=== PATIENT | male | born 1960 | race Caucasian/White ===

== ENCOUNTER → 2017-10-17 | Outpatient (CLI) | payer MEDICARE ==
[~2017-10-17] MED LIST: ALEVE220 MG PO; ASPI-COR81 MG PO; AUGMENTIN 875 M1 TAB PO; CHOLESTER PO; CLARITIN10 MG PO; GABAPENTIN; LYRICA100 MG PO; LYRICA25 MG PO; NKHM; TRAMADOL HCL50 MG PO; ULTRAM50 MG PO; VICODIN 500 MG-1 TAB PO; [UNRECOGNIZED DRUG - OTHER] PO
[2017-10-17 12:10] LABS: FREE T4 0.8 ng/dl (0.76-1.46)
[2017-10-18 06:13] LABS: TOTAL PROTEIN, SERUM 7.7 g/dL (6.0-8.5)
[2017-10-18 08:10] LABS: IMMUNOGLOBULIN G, QNT 1489 mg/dL (700-1600); IMMUNOGLOBULIN M, QNT 98 mg/dL (20-172); RHEUMATOID ARTHRITIS FACTOR <10.0 IU/mL (0.0-13.9)
[2017-10-18 10:03] LABS: SJOGREN ANTI-SS-A <0.2 AI (0.0-0.9); SJOREN AB, ANTI-SS-B <0.2 AI (0.0-0.9)
[2017-10-18 15:06] LABS: A/G RATIO 0.9 (0.7-1.7); ALBUMIN 3.6 g/dL (2.9-4.4); ALPHA-1-GLOBULIN 0.3 g/dL (0.0-0.4); ALPHA-2-GLOBULIN 0.9 g/dL (0.4-1.0); BETA GLOBULIN 1.2 g/dL (0.7-1.3); GAMMA GLOBULIN 1.7 g/dL (0.4-1.8); GLOBULIN, TOTAL 4.1 g/dL (2.2-3.9); M-SPIKE Not Observed g/dL (Not Observed)
== END | disposition home or self-care (01) ==
LOC: LAB 10:31
PROVIDERS: Psychiatry & Neurology Neurology
DX: Z11.3 Encounter for screening for infections with a predominantly sexual mode of transmission (principal); R26.81 Unsteadiness on feet; R20.9 Unspecified disturbances of skin sensation; R20.2 Paresthesia of skin; R20.0 Anesthesia of skin; Z79.899 Other long term (current) drug therapy

== ENCOUNTER 2018-08-06 07:35 | Emergency (ER) | payer MEDICARE ==
[~2018-08-06] VITALS: Ht 177.8 cm; Wt 98.9 kg
--- NOTE | ~2018-08-06 | EKG ---
[place], [place] ELECTROCARDIOGRAM REPORT NAME: DERIC CHILDRESS UNIT #: [id number] ROOM: DOCTOR: ROMAIN DRAFT REPORT BIRTHDATE: [birth year] [facility] Test Date: 2018-08-06 Test Time: 08:33:02 Pat Name: DERIC CHILDRESS Department: Room: Gender: Lead Case Manager: Sayra Arce : 1960 Requested By: RYLIE RICH Order Number: [id number] Reading MD: Herve Frank MD Measurements Intervals [place] Rate: 79 P: 50 HI: 176 QRS: -12 QRSD: 94 T: 43 QT: 374 QTc: 429 Interpretive Statements Sinus rhythm Consider right ventricular hypertrophy Electronically Signed On 08-07-2018 8:12:00 PST by Herve Frank MD CM:EKGRPT:ELECTROCARDIOGRAM REPORT [id number] RYLIE LOVETT DRAFT REPORT RYLIE RICH DO
[2018-08-06 08:39] LABS: BASO % 0.3 % (0.0-1.0); EOS # 0.2 10*3/uL (0.0-0.4); EOS % 1.9 % (1.0-4.0); HEMATOCRIT 46.5 % (42.0-52.0); HEMOGLOBIN 16.3 g/dl (14.0-18.0); LYMPH # 3.8 10*3/uL (1.3-4.4); MEAN CELL VOLUME 91.2 fl (80.0-94.0); MEAN CORPUSCULAR HGB CONC 35.1 g/dl (33.0-37.0); MEAN PLATELET VOLUME 11.3 fl (9.6-12.3); MONO # 0.7 10*3/uL (0.1-1.0); MONO % 5.8 % (3.0-9.0); NEUT % 59.7 % (47.0-73.0); PLATELET COUNT AUTOMATED 234 10*3/uL (130-400); RED CELL DISTRI WIDTH 13.6 % (0-14.5); WHITE BLOOD COUNT 11.8 10*3/uL (4.8-10.8)
[2018-08-06 08:45] LABS: ACT PARTIAL THROMBO TIME 24.6 SECONDS (20.8-31.5); INTERNATIONAL NORM RATIO 0.9 (2.0-3.5)
[2018-08-06 08:51] LABS: ALBUMIN 3.4 gm/dl (3.1-4.5); ALKALINE PHOSPHATASE 79 U/L (45-117); BUN 15 mg/dl (7-24); CHLORIDE 111 mmol/L (98-107); CREATININE 1.18 mg/dL (0.70-1.30); LIPASE 284 U/L (73-393); POTASSIUM 3.7 mmol/L (3.5-5.1); SGOT/AST 12 IU/L (3-35); SGPT/ALT 25 U/L (12-78); SODIUM 139 mmol/L (136-145); TOTAL PROTEIN 7.8 gm/dL (6.4-8.2)
[2018-08-06 09:00] LABS: TROPONIN I < 0.015 ng/ml (<0.045)
[2018-08-06] MEDS ORDERED: DOXYCYCLINE100 M3 PO (10:14)
[2018-08-06] MEDS ORDERED: MUCINEX1200 M1 PO (10:14)
== END 2018-08-06 10:44 | disposition home or self-care (01) ==
LOC: ED 07:35
PROVIDERS: Emergency Medicine
DX: J01.90 Acute sinusitis, unspecified (principal); R42 Dizziness and giddiness; R05 Cough; R79.1 Abnormal coagulation profile; Z79.899 Other long term (current) drug therapy; Z79.82 Long term (current) use of aspirin; Z88.1 Allergy status to other antibiotic agents; Z88.6 Allergy status to analgesic agent

== ENCOUNTER → 2018-11-03 | Day surgery (SDC) | payer MEDICARE ==
[~2018-11-03] VITALS: Ht 177.8 cm; Wt 104.3 kg
[~2018-11-03] MED LIST changes: +ASPIR-TRIN325 MG PO; +ATORVASTATIN CA80 M1 PO; +DOXYCYCLINE100 M3 PO; +LYRICA150 M1 PO; +MUCINEX1200 M1 PO
--- NOTE | ~2018-11-03 | O ---
[place], [place] OPERATIVE NOTE NAME: DERIC CHILDRESS UNIT #: [id number] ROOM: DOCTOR: JAYJAY DIXON MD BIRTHDATE: [birth year] DOS: 11/03/2018 HISTORY OF PRESENT ILLNESS: A 58-year-old patient who presented with chief complaint of history of colonic polyp in the remote past 20 years ago. ALLERGIES: DICLOFENAC AND AMOXICILLIN. FAMILY HISTORY: Colon cancer. PAST SURGICAL HISTORY: Minor operation and carpal tunnel in the left knee scope, cardiac stents. HISTORY: Hyperlipidemia, coronary artery disease. SOCIAL HISTORY: Smoker, nonalcohol consumer. PROCEDURE: Today's procedure part of investigation is colonoscopy. PREMEDICATION: Propofol. SCOPE: Olympus forwarding colonoscope 10L video. REPORT: After putting the patient in left lateral position and application of lubricant to the scope, the scope was introduced. Thereafter, under direct visualization, I advanced through the length of colon without difficulty. Base of the cecum explored. Upon service identified, ileocecal valve defined. Scope was gradually withdrawn from ascending, transverse, descending colon. The patient extubated, tolerated the procedure well. IMPRESSION: Normal colonoscopic examination. PLAN: High fiber fruit diet. ACTIVITY: Ad stanton. FOLLOWUP: Routinely with you in office, p.r.n. visit with us in GI Clinic. Follow-up colonoscopy in 10 years unless there are symptoms in which case follow-up should be as needed. Thank you very much indeed for your kind referral. [place], [place] OPERATIVE NOTE NAME: DERIC CHILDRESS UNIT #: [id number] ROOM: DOCTOR: JAYJAY DIXON MD BIRTHDATE: [birth year] JAYJAY DIXON MD CM:OPRECORD:OPERATIVE NOTE [id number] JAYJAY DIXON MD 11/21/18 1509 interface
[2018-11-03 10:37] VITALS: BP 142/96
[2018-11-03 12:08] VITALS: BP 95/68
[2018-11-03 12:10] VITALS: BP 97/63
[2018-11-03 12:25] VITALS: BP 126/81
== END | disposition home or self-care (01) ==
LOC: SDC 11-02 08:00
DX: R14.0 Abdominal distension (gaseous) (principal); R10.9 Unspecified abdominal pain; E78.5 Hyperlipidemia, unspecified; M19.90 Unspecified osteoarthritis, unspecified site; I25.2 Old myocardial infarction; F17.210 Nicotine dependence, cigarettes, uncomplicated; I25.10 Atherosclerotic heart disease of native coronary artery without angina pectoris; Z88.1 Allergy status to other antibiotic agents; Z88.0 Allergy status to penicillin; Z88.8 Allergy status to other drugs, medicaments and biological substances; Z87.442 Personal history of urinary calculi; Z98.890 Other specified postprocedural states; Z95.818 Presence of other cardiac implants and grafts; Z79.82 Long term (current) use of aspirin; Z79.899 Other long term (current) drug therapy; Z86.73 Personal history of transient ischemic attack (TIA), and cerebral infarction without residual deficits; Z86.010 Personal history of colon polyps; Z82.49 Family history of ischemic heart disease and other diseases of the circulatory system; Z80.0 Family history of malignant neoplasm of digestive organs; Z80.3 Family history of malignant neoplasm of breast; Z80.1 Family history of malignant neoplasm of trachea, bronchus and lung

== ENCOUNTER 2020-02-09 07:13 | Emergency (ER) | payer OTHER ==
[~2020-02-09] VITALS: Ht 177.8 cm; Wt 98.9 kg
[2020-02-09] MEDS ORDERED: NORCO 10-325 T1 EACH PO (08:34)
== END 2020-02-09 09:00 | disposition home or self-care (01) ==
LOC: ED 07:13
DX: S86.912A Strain of unspecified muscle(s) and tendon(s) at lower leg level, left leg, initial encounter (principal); Z88.8 Allergy status to other drugs, medicaments and biological substances; Z79.899 Other long term (current) drug therapy; Z79.82 Long term (current) use of aspirin; X58.XXXA Exposure to other specified factors, initial encounter; Y93.89 Activity, other specified; Y92.89 Other specified places as the place of occurrence of the external cause; Y99.8 Other external cause status

== ENCOUNTER 2020-03-17 21:13 | Emergency (ER) | payer OTHER ==
[~2020-03-17] VITALS: Ht 177.8 cm; Wt 98.9 kg
[~2020-03-17 21:13] MED LIST changes: +NORCO 10-325 T1 EACH PO
== END 2020-03-17 23:06 | disposition home or self-care (01) ==
LOC: ED 21:13
DX: S90.31XA Contusion of right foot, initial encounter (principal); Z88.1 Allergy status to other antibiotic agents; Z88.6 Allergy status to analgesic agent; Z79.82 Long term (current) use of aspirin; Z79.899 Other long term (current) drug therapy; X58.XXXA Exposure to other specified factors, initial encounter; Y93.89 Activity, other specified; Y92.89 Other specified places as the place of occurrence of the external cause; Y99.8 Other external cause status

== ENCOUNTER 2020-04-19 23:20 | Emergency (ER) | payer OTHER ==
[~2020-04-19] VITALS: Ht 177.8 cm; Wt 104.3 kg
[2020-04-19 23:52] LABS: BASO # 0.1 10*3/uL (0.0-0.1); BASO % 0.5 % (0.0-1.0); EOS # 0.2 10*3/uL (0.0-0.4); EOS % 2.5 % (1.0-4.0); HEMATOCRIT 46.4 % (42.0-52.0); LYMPH # 2.5 10*3/uL (1.3-4.4); LYMPH % 26.2 % (27.0-41.0); MEAN CELL VOLUME 93.2 fl (80.0-94.0); MEAN CORPUSCULAR HGB 32.3 pg (27.0-31.0); MEAN CORPUSCULAR HGB CONC 34.7 g/dl (33.0-37.0); MEAN PLATELET VOLUME 11.4 fl (9.6-12.3); MONO # 0.6 10*3/uL (0.1-1.0); NEUT # 6.2 10*3/uL (2.3-7.9); NEUT % 64.5 % (47.0-73.0); PLATELET COUNT AUTOMATED 207 10*3/uL (130-400); RED BLOOD COUNT 4.98 10*6/uL (4.50-5.90); RED CELL DISTRI WIDTH 14.2 % (0-14.5); WHITE BLOOD COUNT 9.7 10*3/uL (4.8-10.8)
[2020-04-20 00:10] LABS: ALBUMIN 3.6 gm/dl (3.1-4.5); ALKALINE PHOSPHATASE 71 U/L (45-117); BUN 10 mg/dl (7-24); CHLORIDE 112 mmol/L (98-107); CREATININE 1.21 mg/dL (0.70-1.30); POTASSIUM 3.6 mmol/L (3.5-5.1); SGOT/AST 14 IU/L (3-35); SGPT/ALT 27 U/L (12-78); SODIUM 142 mmol/L (136-145); TOTAL PROTEIN 7.6 gm/dL (6.4-8.2); TROPONIN I < 0.015 ng/ml (<0.045)
[2020-04-20] MEDS ORDERED: MEDROL DOSEPAK4 MG PO (01:09)
== END 2020-04-20 01:30 | disposition home or self-care (01) ==
LOC: ED 23:20
PROVIDERS: Physician Assistant
DX: J68.0 Bronchitis and pneumonitis due to chemicals, gases, fumes and vapors (principal); F17.200 Nicotine dependence, unspecified, uncomplicated; Z79.899 Other long term (current) drug therapy; Z88.8 Allergy status to other drugs, medicaments and biological substances; Z79.2 Long term (current) use of antibiotics; Z79.82 Long term (current) use of aspirin

== ENCOUNTER 2021-05-20 17:32 | Emergency (ER) | payer OTHER ==
[~2021-05-20] VITALS: Wt 99.8 kg
[~2021-05-20 17:32] MED LIST changes: +MEDROL DOSEPAK4 MG PO
[2021-05-20] MEDS ORDERED: HYDROCODONE-AC1 EAC1 PO (20:21)
== END 2021-05-20 20:27 | disposition home or self-care (01) ==
LOC: ED 17:32
DX: S89.92XA Unspecified injury of left lower leg, initial encounter (principal); Z88.1 Allergy status to other antibiotic agents; Z88.8 Allergy status to other drugs, medicaments and biological substances; Z79.899 Other long term (current) drug therapy; Z79.82 Long term (current) use of aspirin; Z98.890 Other specified postprocedural states; W19.XXXA Unspecified fall, initial encounter; Y93.89 Activity, other specified; Y92.89 Other specified places as the place of occurrence of the external cause; Y99.8 Other external cause status

== ENCOUNTER → 2021-06-04 | Outpatient (CLI) | payer OTHER ==
[~2021-06-04] MED LIST changes: +HYDROCODONE-AC1 EAC1 PO
[2021-06-04 10:11] LABS: BASO # 0.1 10*3/uL (0.0-0.1); BASO % 0.7 % (0.0-1.0); EOS # 0.2 10*3/uL (0.0-0.4); EOS % 2.5 % (1.0-4.0); HEMATOCRIT 50.5 % (42.0-52.0); LYMPH % 33.3 % (27.0-41.0); MEAN CELL VOLUME 91.8 fl (80.0-94.0); MEAN CORPUSCULAR HGB 31.3 pg (27.0-31.0); MEAN CORPUSCULAR HGB CONC 34.1 g/dl (33.0-37.0); MEAN PLATELET VOLUME 11.2 fl (9.6-12.3); MONO # 0.4 10*3/uL (0.1-1.0); MONO % 4.2 % (3.0-9.0); NEUT # 5.4 10*3/uL (2.3-7.9); PLATELET COUNT AUTOMATED 254 10*3/uL (130-400); RED CELL DISTRI WIDTH 13.9 % (0-14.5); WHITE BLOOD COUNT 9.1 10*3/uL (4.8-10.8)
[2021-06-04 10:42] LABS: ALBUMIN 3.5 gm/dl (3.1-4.5); ALKALINE PHOSPHATASE 75 U/L (45-117); BUN 10 mg/dl (7-24); CHLORIDE 108 mmol/L (98-107); CHOLESTEROL 171 mg/dL (<200); CREATININE 1.16 mg/dL (0.70-1.30); FREE T4 1.11 ng/dl (0.76-1.46); LDL CHOLESTEROL 97 mg/dL (9-159); POTASSIUM 4.3 mmol/L (3.5-5.1); SGOT/AST 20 IU/L (3-35); SGPT/ALT 38 U/L (12-78); SODIUM 137 mmol/L (136-145); TOTAL PROTEIN 8.6 gm/dL (6.4-8.2); TRIGLYCERIDES 199 mg/dl (<150)
[2021-06-04 11:37] LABS: VITAMIN D, 25-HYDROXY 26.7 ng/mL (30-100)
== END | disposition home or self-care (01) ==
LOC: LAB 09:49
PROVIDERS: ATTEND Internal Medicine
DX: I25.10 Atherosclerotic heart disease of native coronary artery without angina pectoris (principal); E55.9 Vitamin D deficiency, unspecified; E78.2 Mixed hyperlipidemia

== ENCOUNTER → 2021-07-03 | Outpatient (CLI) | payer OTHER | END | disposition home or self-care (01) | LOC: ORTHO 04:27 | PROVIDERS: ATTEND Orthopaedic Surgery | DX: M11.262 Other chondrocalcinosis, left knee (principal); M76.891 Other specified enthesopathies of right lower limb, excluding foot ==

== ENCOUNTER 2022-02-21 14:54 | Inpatient (IN) | payer OTHER ==
[~2022-02-21] VITALS: Ht 177.8 cm; Wt 106.7 kg
[2022-02-21 15:21] VITALS: BP 111/76
[2022-02-21 16:24] LABS: BASO # 0.1 10*3/uL (0.0-0.1); BASO % 0.4 % (0.0-1.0); EOS # 0.1 10*3/uL (0.0-0.4); EOS % 0.6 % (1.0-4.0); HEMATOCRIT 48.6 % (42.0-52.0); LYMPH # 2.3 10*3/uL (1.3-4.4); LYMPH % 16.6 % (27.0-41.0); MEAN CELL VOLUME 91.5 fl (80.0-94.0); MEAN CORPUSCULAR HGB 31.1 pg (27.0-31.0); MEAN PLATELET VOLUME 11.8 fl (9.6-12.3); MONO # 0.6 10*3/uL (0.1-1.0); MONO % 4.5 % (3.0-9.0); NEUT # 10.8 10*3/uL (2.3-7.9); NEUT % 77.7 % (47.0-73.0); PLATELET COUNT AUTOMATED 196 10*3/uL (130-400); RED BLOOD COUNT 5.31 10*6/uL (4.50-5.90); RED CELL DISTRI WIDTH 14.3 % (0-14.5); WHITE BLOOD COUNT 13.9 10*3/uL (4.8-10.8)
[2022-02-21 16:36] LABS: ACT PARTIAL THROMBO TIME 28.6 SECONDS (20.0-32.1)
[2022-02-21 16:39] LABS: ALKALINE PHOSPHATASE 68 U/L (45-117); BUN 10 mg/dl (7-24); CHLORIDE 110 mmol/L (98-107); CREATININE 0.97 mg/dL (0.70-1.30); LIPASE 105 U/L (73-393); SGOT/AST 21 IU/L (3-35); SGPT/ALT 21 U/L (12-78); SODIUM 141 mmol/L (136-145); TOTAL PROTEIN 7.8 gm/dL (6.4-8.2)
[2022-02-21 21:00] VITALS: BP 126/75
[2022-02-21] MEDS ORDERED: OMEPRAZOLE MAGN20 MG PO (21:16)
[2022-02-21] MEDS ORDERED: CYMBALTA30 MG PO (21:17)
[2022-02-21] MEDS ORDERED: MELOXICAM15 MG PO (21:21)
[2022-02-21] MEDS ORDERED: VITAMIN D325 MCG PO (21:22)
[2022-02-21] MEDS ORDERED: PROTONIX40 MG PO (21:32)
[2022-02-22] VITALS (8 sets, daily range): BP systolic 100–119; BP diastolic 60–78
[2022-02-22 06:19] LABS: BASO % 0.2 % (0.0-1.0); EOS % 0.1 % (1.0-4.0); HEMATOCRIT 47.2 % (42.0-52.0); LYMPH # 2.2 10*3/uL (1.3-4.4); LYMPH % 13.6 % (27.0-41.0); MEAN CORPUSCULAR HGB 31.9 pg (27.0-31.0); MEAN CORPUSCULAR HGB CONC 33.9 g/dl (33.0-37.0); MEAN PLATELET VOLUME 12.5 fl (9.6-12.3); MONO # 0.9 10*3/uL (0.1-1.0); MONO % 5.6 % (3.0-9.0); NEUT # 12.9 10*3/uL (2.3-7.9); NEUT % 79.9 % (47.0-73.0); PLATELET COUNT AUTOMATED 182 10*3/uL (130-400); RED BLOOD COUNT 5.02 10*6/uL (4.50-5.90); RED CELL DISTRI WIDTH 14.5 % (0-14.5); WHITE BLOOD COUNT 16.2 10*3/uL (4.8-10.8)
[2022-02-22 06:48] LABS: ALKALINE PHOSPHATASE 66 U/L (45-117); BUN 10 mg/dl (7-24); CHLORIDE 112 mmol/L (98-107); CREATININE 0.93 mg/dL (0.70-1.30); POTASSIUM 3.8 mmol/L (3.5-5.1); SGOT/AST 18 IU/L (3-35); SGPT/ALT 18 U/L (12-78); SODIUM 139 mmol/L (136-145); TOTAL PROTEIN 7.4 gm/dL (6.4-8.2)
== END 2022-02-22 18:04 | disposition home or self-care (01) | DRG 343 ==
LOC: ED 14:54 → EDHOLD 17:49 → 5E 17:49
PROVIDERS: Emergency Medicine; ADMIT Internal Medicine; ATTEND Internal Medicine
PROC: 0DTJ4ZZ Resection of Appendix, Percutaneous Endoscopic Approach (ICD-10-PCS; principal; 2022-02-22)
PROC: 3E0T3BZ Introduction of Anesthetic Agent into Peripheral Nerves and Plexi, Percutaneous Approach (ICD-10-PCS; 2022-02-22)
PROC: 3E0T33Z Introduction of Anti-inflammatory into Peripheral Nerves and Plexi, Percutaneous Approach (ICD-10-PCS; 2022-02-22)
DX: K35.30 Acute appendicitis with localized peritonitis, without perforation or gangrene (principal); K21.9 Gastro-esophageal reflux disease without esophagitis; E78.5 Hyperlipidemia, unspecified; E55.9 Vitamin D deficiency, unspecified; G89.29 Other chronic pain; K80.20 Calculus of gallbladder without cholecystitis without obstruction; Z96.652 Presence of left artificial knee joint; Z88.1 Allergy status to other antibiotic agents; Z88.8 Allergy status to other drugs, medicaments and biological substances; Z82.49 Family history of ischemic heart disease and other diseases of the circulatory system; Z79.899 Other long term (current) drug therapy; Z79.82 Long term (current) use of aspirin; Z80.1 Family history of malignant neoplasm of trachea, bronchus and lung

== ENCOUNTER 2022-06-06 23:40 | Emergency (ER) | payer OTHER ==
[~2022-06-06] VITALS: Ht 177.8 cm; Wt 111.6 kg
[~2022-06-06 23:40] MED LIST changes: +CYMBALTA30 MG PO; +MELOXICAM15 MG PO; +OMEPRAZOLE MAGN20 MG PO; +PROTONIX40 MG PO; +VITAMIN D325 MCG PO
[2022-06-07 02:18] LABS: BASO # 0.1 10*3/uL (0.0-0.1); BASO % 0.6 % (0.0-1.0); EOS # 0.2 10*3/uL (0.0-0.4); EOS % 2.1 % (1.0-4.0); HEMATOCRIT 47.8 % (42.0-52.0); LYMPH # 3.2 10*3/uL (1.3-4.4); LYMPH % 36.6 % (27.0-41.0); MEAN CELL VOLUME 91.6 fl (80.0-94.0); MEAN CORPUSCULAR HGB 31.4 pg (27.0-31.0); MEAN CORPUSCULAR HGB CONC 34.3 g/dl (33.0-37.0); MEAN PLATELET VOLUME 10.8 fl (9.6-12.3); MONO # 0.6 10*3/uL (0.1-1.0); MONO % 6.7 % (3.0-9.0); NEUT # 4.7 10*3/uL (2.3-7.9); NEUT % 53.7 % (47.0-73.0); PLATELET COUNT AUTOMATED 205 10*3/uL (130-400); RED BLOOD COUNT 5.22 10*6/uL (4.50-5.90); RED CELL DISTRI WIDTH 13.8 % (0-14.5); WHITE BLOOD COUNT 8.7 10*3/uL (4.8-10.8)
[2022-06-07 02:33] LABS: ALKALINE PHOSPHATASE 58 U/L (45-117); BUN 18 mg/dl (7-24); CHLORIDE 113 mmol/L (98-107); CREATININE 1.34 mg/dL (0.70-1.30); POTASSIUM 4.2 mmol/L (3.5-5.1); SGOT/AST 14 IU/L (3-35); SGPT/ALT 29 U/L (12-78); SODIUM 143 mmol/L (136-145); TOTAL PROTEIN 7.7 gm/dL (6.4-8.2)
[2022-06-07] MEDS ORDERED: VIBRAMYCIN HYC100 MG PO (06:14)
== END 2022-06-07 06:26 | disposition home or self-care (01) ==
LOC: ED 23:40
PROVIDERS: Emergency Medicine
DX: H66.91 Otitis media, unspecified, right ear (principal); G50.0 Trigeminal neuralgia; K21.9 Gastro-esophageal reflux disease without esophagitis; E78.5 Hyperlipidemia, unspecified; Z88.1 Allergy status to other antibiotic agents; Z88.8 Allergy status to other drugs, medicaments and biological substances; Z79.899 Other long term (current) drug therapy; Z79.82 Long term (current) use of aspirin; Z90.49 Acquired absence of other specified parts of digestive tract; Z98.890 Other specified postprocedural states

== ENCOUNTER 2022-06-16 10:09 | Emergency (ER) | payer OTHER ==
[~2022-06-16] VITALS: Wt 107.0 kg
[~2022-06-16 10:09] MED LIST changes: +VIBRAMYCIN HYC100 MG PO
[2022-06-16] MEDS ORDERED: AVPAK AZITHROM250 M1 PO (11:50)
== END 2022-06-16 12:08 | disposition home or self-care (01) ==
LOC: ED 10:09
DX: G51.0 Bell's palsy (principal); H66.91 Otitis media, unspecified, right ear; Z88.1 Allergy status to other antibiotic agents; Z88.8 Allergy status to other drugs, medicaments and biological substances; Z79.899 Other long term (current) drug therapy; Z79.82 Long term (current) use of aspirin; Z90.49 Acquired absence of other specified parts of digestive tract; Z98.890 Other specified postprocedural states

== ENCOUNTER 2022-11-17 15:45 | Emergency (ER) | payer OTHER ==
[~2022-11-17 15:45] MED LIST changes: +AVPAK AZITHROM250 M1 PO
== END 2022-11-17 18:57 | disposition left against medical advice (07) ==
LOC: ED 15:45
DX: K13.0 Diseases of lips (principal); Z53.21 Procedure and treatment not carried out due to patient leaving prior to being seen by health care provider

== ENCOUNTER → 2023-04-08 | Outpatient (CLI) | payer OTHER | END | disposition home or self-care (01) | LOC: MRI 00:50 | PROVIDERS: ATTEND Nurse Practitioner Family | DX: M47.817 Spondylosis without myelopathy or radiculopathy, lumbosacral region (principal); M48.07 Spinal stenosis, lumbosacral region ==

== ENCOUNTER → 2023-06-14 | Outpatient (CLI) | payer OTHER | END | disposition home or self-care (01) | LOC: MRI 06-13 08:38 | PROVIDERS: ATTEND Nurse Practitioner Family | DX: M75.101 Unspecified rotator cuff tear or rupture of right shoulder, not specified as traumatic (principal); M19.011 Primary osteoarthritis, right shoulder ==

== ENCOUNTER 2023-12-22 05:36 | Emergency (ER) | payer OTHER ==
[~2023-12-22] VITALS: Ht 177.8 cm; Wt 106.1 kg
[2023-12-22] MEDS ORDERED: Ketorolac Tromethamine 30 MG/ML VIAL IM ONE (06:30)
[2023-12-22] MEDS ORDERED: METHOCARBAMOL 750 MG TAB PO ONE (06:30)
[2023-12-22] MEDS ORDERED: METHOCARBAMOL750 M1 PO (06:32)
[2023-12-22] MEDS ORDERED: NAPROXEN250 MG PO (06:32)
== END 2023-12-22 06:51 | disposition home or self-care (01) ==
LOC: ED 05:36
DX: Z88.1 Allergy status to other antibiotic agents (principal); Z88.8 Allergy status to other drugs, medicaments and biological substances; Z79.899 Other long term (current) drug therapy; Z79.82 Long term (current) use of aspirin; Z90.49 Acquired absence of other specified parts of digestive tract